=== PATIENT | male | born 2000 | race Caucasian/White ===

== ENCOUNTER 2022-09-24 16:14 | Emergency (ER) | payer SELFPAY ==
[~2022-09-24] VITALS: Ht 170 cm; Wt 61.2 kg
[~2022-09-24 16:14] MED LIST: BACTRIM PO; CETI1SOL11 PO; OMEP20CA6 PO
[2022-09-24] MEDS ORDERED: LIDOCAINE 1% INJ 20 ML VIAL INJ ONE (16:30)
--- NOTE | 2022-09-24 16:32 | ED Lower Extremity ---
General Chief Complaint: Lower Extremity Stated Complaint: INJ RIGHT PINKIE TOE Source: patient Exam Limitations: no limitations (VERONICA CONTRERAS) History of Present Illness Date Seen by Provider: September 24, 2022 Time Seen by Provider: 16:28 Initial Comments Patient is a 22-year-old male presents ED with a injury to right pinky toe. Patient states he injured his right foot around 330. Accidentally hit a cylinder staircase. Report a deformity of his right pinky toe. Went to urgent care concerning for fracture or dislocation. Denied of any bleeding. Was not able to reduce at urgent care and was sent to the ED for further evaluation. Reports some numbness and tingling distally (VERONICA CONTRERAS) Allergies and Home Medications Allergies Coded Allergies: Amoxicillin (Unverified Allergy, Mild, RASH, 08/17/11) Patient Home Medication List Home Medication List Reviewed: Yes (VERONICA CONTRERAS) Cetirizine Hcl (Cetirizine Hcl) 1 Mg/1 Ml Solution, 1 TSP PO DAILY, (Reported) Entered as Reported by: GABBY NINA on 08/17/11 1402 Hydrocodone/Acetaminophen (Hydrocodone-Acetamin 5-325 mg) 5 Mg-325 Mg Tablet, 1 TAB PO Q4H PRN for PAIN-MODERATE (5-7) Prescribed by: RICARDO HERNÁNDEZ on 09/24/22 180 Ibuprofen (Ibuprofen) 600 Mg Tablet, 600 MG PO Q8H Prescribed by: RICARDO HERNÁNDEZ on 09/24/22 180 Omeprazole (Prilosec) 20 Mg Capsule.dr, 20 MG PO, (Reported) Entered as Reported by: GABBY NINA on 08/17/11 1402 [Bactrim Tablet] , 1 TAB PO BID, (Reported) Entered as Reported by: AVEL GONZALEZ on 08/25/11 0915 Review of Systems Constitutional: No chills, No diaphoresis, No fever, No malaise, No weakness EENTM: No ear pain, No blurred vision, No double vision Respiratory: No cough, No dyspnea on exertion Cardiovascular: No chest pain Gastrointestinal: No abdominal pain, No diarrhea, No nausea, No vomiting Genitourinary: No decreased output, No discharge Musculoskeletal: No back pain; joint pain, joint swelling (VERONICA CONTRERAS) All Other Systems Reviewed Negative Unless Noted: Yes (VERONICA CONTRERAS) Past Rshliae-Vryqkg-Nbaubx Hx Past Medical History Reproductive Disorders: No (VERONICA CONTRERAS) Physical Exam Vital Signs Vital Signs - First Documented 09/24/22 16:27 Temp 35.8 Pulse 81 Resp 16 B/P (MAP) 140/77 (98) Pulse Ox 98 (OSCAR BRANTLEY MD) Vital Signs Capillary Refill : (VERONICA CONTRERAS) Height, Weight, BMI Height: '" Weight: lbs. oz. kg; BMI Method: General Appearance: WD/WN, no apparent distress HEENT: PERRL/EOMI, normal ENT inspection, TMs normal, pharynx normal Neck: non-tender, full range of motion, supple, normal inspection Cardiovascular: regular rate, rhythm, no edema, no gallop, no JVD Respiratory: chest non-tender, lungs clear, normal breath sounds Gastrointestinal: normal bowel sounds, non tender, soft, no organomegaly Back: normal inspection Hips: bilateral hip non-tender, bilateral hip normal inspection, bilateral hip normal range of motion Knees: bilateral knee non-tender, bilateral knee normal inspection, bilateral knee normal range of motion Ankles: bilateral ankle non-tender, bilateral ankle normal inspection, bilateral ankle normal range of motion Feet: right foot soft tissue tenderness (Tenderness to right little pinky toe with deformity neurovascular intact.), right foot swelling Neurologic/Psychiatric: sliding joint maker II-XII nml as tested, no motor/sensory deficits, alert, normal mood/affect, oriented x 3 Skin: normal color, warm/dry, other (No active bleeding or open wound of the right pinky toe) (VERONICA CONTRERAS) Procedures/Interventions Splinting and Joint Reduction : Pre-Proc Neuro Vasc Exam: normal Post-Proc Neuro Vasc Exam: normal Progress Fracture to right fifth proximal phalanx of fifth toe. Lidocaine 1% 3 ml four- way digital block of right fifth toe. Near complete reduction of the fracture site. Neurovascularly intact pre and post reduction Pre-Procedure NV Exam: Yes post joint reduction film: Fracture site reduced (VERONICA CONTRERAS) Progress/Results/Core Measures Results/Orders Medications Given in ED Current Medications Medications Dose Ordered Sig/Juan Route Start Time Stop Time Status Last Admin Dose Admin Lidocaine HCl 20 ml ONCE ONCE INJ 09/24/22 16:30 09/24/22 16:31 DC 09/24/22 16:50 20 ML (OSCAR BRANTLEY MD) Vital Signs/I&O 09/24/22 09/24/22 16:27 18:28 Temp 35.8 Pulse 81 75 Resp 16 16 B/P (MAP) 140/77 (98) 125/72 Pulse Ox 98 98 (OSCAR BRANTLEY MD) Departure Communication (PCP) Patient was sent over from urgent care for a dislocated fracture of his right fifth toe. This occurred today. On exam deformity noted. Neurovascular intact. Four-way digital block with 1% lidocaine. Procedure document note. Near Successful reduction of fracture site. X-ray showed a mildly displaced oblique oriented fracture of the proximal phalanx of the fifth toe. Patient was placed in a postop shoe. No evidence of bleeding suggesting open fracture. Tolerated procedure well. Tai taped to his fourth toe to help keep fracture site approximate. Continue with tai tape. Postop shoe. Limited weightbearing to prevent fracture site from displacing. Crutches as needed. Follow-up with orthopedic this next week for reevaluation. Will discharge with hydrocodone as needed. Take ibuprofen daily for pain and swelling. Return back to ED if symptoms worsen such as redness, swelling or deformity (VERONICA CONTRERAS) Impression Primary Impression: Fracture of foot Disposition: HOME, SELF-CARE Condition: Stable Admissions Decision to Admit Reason: Admit from ER (General) Decision to Admit/Date: September 24, 2022 Time/Decision to Admit Time: 18:07 (VERONICA CONTRERAS) Departure-Patient Inst. Decision time for Depature: 18:07 (VERONICA CONTRERAS) Referrals: VALENTIN MARSHALL MD (PCP/Family) Primary Care Physician LASHELL CAMBPELL MD Patient Instructions: Foot Fracture ED Add. Discharge Instructions: Recommend contacted Dr. Campbell's office on Monday to follow-up with them. Limited weightbearing to help keep the fracture site intact. Take ibuprofen daily. For breakthrough pain hydrocodone. tai tape All discharge instructions reviewed with patient and/or family. Voiced understanding. Scripts Ibuprofen (Ibuprofen) 600 Mg Tablet 600 MG PO Q8H for PAIN, #20 TAB 0 Refills Prov: VERONICA CONTRERAS 09/24/22 Hydrocodone/Acetaminophen (Hydrocodone-Acetamin 5-325 mg) 5 Mg-325 Mg Tablet 1 TAB PO Q4H PRN for PAIN-MODERATE (5-7), #8 TAB Prov: VERONICA CONTRERAS 09/24/22 ATTENDING PHYSICIAN NOTE: I was physically present as attending physician in the emergency department during the care of this patient, but I was not directly involved in the decision making or delivery of care for this patient. (OSCAR BRANTLEY MD) VERONICA CONTRERAS September 24, 2022 16:32 OSCAR BRANTLEY MD September 24, 2022 19:28
--- NOTE | 2022-09-24 17:42 | Diagnostic Imaging Report ---
INDICATION: Status post reduction of the fifth toe. COMPARISON: 04/06/2015. FINDINGS: There is no current dislocation, though there does appear to be an obliquely oriented fracture of the proximal phalanx of the fifth toe. The remainder of the toes are unremarkable. The midfoot and hindfoot appear appropriate. IMPRESSION: 1. No current dislocation. There is a minimally displaced obliquely oriented fracture of the proximal phalanx of the fifth toe. Dictated by: Dictated on workstation # [id number]
[2022-09-24] MEDS ORDERED: ACHD5005 PO (18:08)
[2022-09-24] MEDS ORDERED: IBUP-1773 PO (18:09)
[2022-09-24 18:28] VITALS: BP 125/72
== END 2022-09-24 18:28 | disposition home or self-care (01) ==
LOC: EDUNIT# 16:14 → ER 16:17
DX: S92.511A Displaced fracture of proximal phalanx of right lesser toe(s), initial encounter for closed fracture (principal); W22.09XA Striking against other stationary object, initial encounter
CPT/HCPCS: 28515; 28660; 73630